=== PATIENT | male | born 1985 | race Caucasian/White ===

== ENCOUNTER → 2016-10-27 | Outpatient (CLI) | payer SELFPAY ==
[~2016-10-27] MED LIST: THERA-VITE W/ B1 TAB PO
== END | disposition disaster alternative care site (69) ==
LOC: GRAD 12:00
DX: R10.9 Unspecified abdominal pain (principal); Z90.49 Acquired absence of other specified parts of digestive tract
CPT/HCPCS: Q9967

== ENCOUNTER 2016-11-16 07:55 | Observation (INO) | payer SELFPAY ==
[~2016-11-16] VITALS: Ht 177.8 cm
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
[2016-11-16 08:31] LABS: BASOPHIL # 0.1 K/uL (0.0-0.2); BASOPHIL % 0.5 %; EOSINOPHIL # 0.2 K/uL (0.0-0.5); EOSINOPHIL % 1.2 %; HEMATOCRIT 42.6 % (37.0-53.0); HEMOGLOBIN 13.7 g/dL (12.0-17.0); IMMATURE GRANULOCYTE # 0.1 K/uL (0.0-0.3); IMMATURE GRANULOCYTE % 0.9 %; LYMPHOCYTE # 3.9 K/uL (0.8-4.0); LYMPHOCYTE % 30.6 %; MCH 29.7 pg (27.0-34.0); MCHC 32.2 gm/dL (32.0-36.5); MCV 92.4 fl (83.0-98.0); MONOCYTE # 0.7 K/uL (0.0-1.0); MONOCYTE % 5.8 %; MPV 10.9 fl (9.4-12.4); NEUTROPHIL # (ANC) 7.8 K/uL (1.4-9.0); NRBC % 0 /100WBC (0-0.00); PLATELET COUNT 280 K/uL (150-450); RBC 4.61 M/uL (4.00-6.00); RDW-CV 15.3 % (11.9-14.6); WBC 12.7 K/uL (4.0-11.0)
[2016-11-16 08:38] LABS: BILIRUBIN URINE NEGATIVE (NEGATIVE); BLOOD URINE 50 /UL (NEGATIVE); COLOR URINE STRAW (YELLOW); GLUCOSE URINE NEGATIVE (NEGATIVE); KETONE URINE NEGATIVE (NEGATIVE); LEUKOCYTES URINE NEGATIVE /UL (NEGATIVE); NITRITE URINE NEGATIVE (NEGATIVE); PROTEIN URINE NEGATIVE (NEGATIVE); TURBIDITY URINE CLEAR (CLEAR); UROBILINOGEN URINE NORMAL (NORMAL)
[2016-11-16 08:39] LABS: INR - (THERAPEUTIC) 0.95 (0.92-1.07); PTT 24 SECONDS (25-32)
[2016-11-16 08:45] LABS: WBC URINE NEGATIVE #/HPF (NEGATIVE)
[2016-11-16 08:46] LABS: ALBUMIN 3.8 gm/dL (3.5-5.0); ALK PHOS 85 IU/L (33-138); ALT 181 IU/L (12-78); ANION GAP 10.7 (10.0-19.0); AST 33 IU/L (10-40); BLOOD UREA NITROGEN 14 mg/dL (6-24); CALCIUM 8.7 mg/dL (8.5-10.5); CHLORIDE 111 mMol/L (96-110); CO2 27 mMol/L (22-32); ESTIMATED GFR (MDRD EQUATION) > 60; POTASSIUM 3.7 mMol/L (3.7-5.1); SODIUM 145 mMol/L (135-145); TOTAL BILIRUBIN 0.4 mg/dL (0.0-1.5); TOTAL PROTEIN 7.7 g/dL (6.0-8.4)
[2016-11-16 08:46] LABS: BACTERIA URINE NEGATIVE (NEGATIVE); EPITHELIAL URINE NEGATIVE #/HPF (NEGATIVE); RBC URINE 0-2 #/HPF (NEGATIVE)
[2016-11-16 08:56] LABS: BARBITURATE NEGATIVE (NEGATIVE); COCAINE NEGATIVE (NEGATIVE); OPIATES NEGATIVE (NEGATIVE)
[2016-11-16 09:04] LABS: AMPHETAMINE NEGATIVE (NEGATIVE)
[2016-11-16] MEDS ORDERED: THERA-VITE W/ B1 TAB PO (11:09)
== END 2016-11-16 19:10 | disposition disaster alternative care site (69) ==
LOC: GMED 07:55 → GNTU 09:30
PROVIDERS: Family Medicine; ADMIT Internal Medicine
DX: F10.129 Alcohol abuse with intoxication, unspecified (principal); S82.841A Displaced bimalleolar fracture of right lower leg, initial encounter for closed fracture; V89.2XXA Person injured in unspecified motor-vehicle accident, traffic, initial encounter; G93.40 Encephalopathy, unspecified; F17.210 Nicotine dependence, cigarettes, uncomplicated; Z90.49 Acquired absence of other specified parts of digestive tract
CPT/HCPCS: G0378; G0480; J7030

== ENCOUNTER → 2016-11-16 | Outpatient (CLI) | payer OTHER | END | disposition disaster alternative care site (69) | LOC: GAMB 07:29 | DX: M25.571 Pain in right ankle and joints of right foot (principal); M21.961 Unspecified acquired deformity of right lower leg; R41.82 Altered mental status, unspecified; V49.9XXA Car occupant (driver) (passenger) injured in unspecified traffic accident, initial encounter | CPT/HCPCS: A0425; A0427; J3010 ==

== ENCOUNTER → 2016-11-19 | Outpatient (CLI) | payer OTHER | END | disposition disaster alternative care site (69) | LOC: GRAD 08:52 | DX: S82.841A Displaced bimalleolar fracture of right lower leg, initial encounter for closed fracture (principal); S82.391A Other fracture of lower end of right tibia, initial encounter for closed fracture; S82.831A Other fracture of upper and lower end of right fibula, initial encounter for closed fracture; S92.191A Other fracture of right talus, initial encounter for closed fracture; S92.251A Displaced fracture of navicular [scaphoid] of right foot, initial encounter for closed fracture; S92.211A Displaced fracture of cuboid bone of right foot, initial encounter for closed fracture; S92.221A Displaced fracture of lateral cuneiform of right foot, initial encounter for closed fracture; X58.XXXA Exposure to other specified factors, initial encounter ==